=== PATIENT | male | born 1985 | race Two or more races ===

== ENCOUNTER 2021-05-14 11:39 | Inpatient (IN) | payer OTHER ==
[2021-05-14 12:32] LABS: Basophils # (A) 0.1 k/uL (0-0.2); Basophils % (A) 2 %; Eosinophils % (A) 1 %; HCT 39.6 % (39.0-53.0); Lymphocytes # (A) 1.2 k/uL (1.0-4.8); Lymphocytes % (A) 32 %; MCH 32.7 pg (25.0-35.0); MCHC 35.3 g/dL (31.0-37.0); MCV 92.8 fL (80.0-100.0); Mean Platelet Volume 6.1; Monocytes # (A) 0.3 k/uL (0-1.0); Monocytes % (A) 8 %; Neutrophils % (A) 54 %; Platelet Count 273 k/uL (150-450); RBC 4.27 m/uL (4.30-5.90); RDW 14.2 % (11.5-15.5); WBC 3.7 k/uL (3.8-10.6)
[2021-05-14 12:51] LABS: ALT 15 U/L (4-49); AST 28 U/L (17-59); African American GFR (CKD) >90 (>60 ml/min/1.73 sqM); Albumin 4.6 g/dL (3.5-5.0); Alkaline Phosphatase 73 U/L (38-126); Anion Gap 7 mmol/L; Blood Urea Nitrogen 6 mg/dL (9-20); Calcium 8.8 mg/dL (8.4-10.2); Carbon Dioxide 30 mmol/L (22-30); Chloride 86 mmol/L (98-107); Glucose 72 mg/dL (74-99); Magnesium 2.1 mg/dL (1.6-2.3); Non-African American GFR(CKD) >90 (>60 ml/min/1.73 sqM); Potassium 4.6 mmol/L (3.5-5.1); Sodium 123 mmol/L (137-145); Total Bilirubin 0.3 mg/dL (0.2-1.3); Total Protein 7.6 g/dL (6.3-8.2)
--- NOTE | 2021-05-14 13:05 | ED ---
General Adult HPI - General Source: patient Mode of arrival: ambulatory Limitations: no limitations <Eusebio Vaughn - Last Filed: 05/14/21 14:02> <uL Okeefe - Last Filed: 05/20/21 01:22> - General Chief complaint: Recheck/Abnormal Lab/Rx Stated complaint: low sodium Time Seen by Provider: 05/14/21 11:52 - History of Present Illness Initial comments: 36-year-old male presents to the emergency room for a chief complaint of low sodium. Caregiver is at bedside and reports that patient had blood work done at his primary care office yesterday. His sodium was found to be low she reports it was 120. She reports he does take Tegretol and his Tegretol levels were high. Today they were called and told to come into the ER because of this low sodium.patient has not had any symptoms. Is feeling well at this time. No complaints. Mother reports he has been acting normally. Patient has no other complaints at this time including shortness of breath, chest pain, abdominal pain, nausea or vomiting, headache, or visual changes. (Euseboi Vaughn) - Related Data Home Medications Medication Instructions Recorded Confirmed ARIPiprazole [Abilify] 30 mg PO DAILY 05/14/21 05/14/21 Benztropine Mesylate 0.5 mg PO BID 05/14/21 05/14/21 Cetirizine HCl [Zyrtec] 10 mg PO DAILY 05/14/21 05/14/21 Ergocalciferol [Vitamin D2 (1250 1,250 mcg PO QMONTHLY 05/14/21 05/14/21 Mcg = 94426 Iu)] Famotidine [Pepcid] 20 mg PO DAILY 05/14/21 05/14/21 Levothyroxine Sodium 25 mcg PO DIRECTED 05/14/21 05/14/21 Previous Rx's Medication Instructions Recorded Hydrocortisone Cream 1 applic TOPICAL TID 7 Days #1 tube 05/16/21 [Hydrocortisone 1% Cream] carBAMazepine [TEGretol] 100 mg PO DAILY@1200 #30 tab 05/16/21 carBAMazepine [TEGretol] 200 mg PO BID #60 tab 05/16/21 fluvoxaMINE MALEATE [Luvox CR] 100 mg PO BID #60 cap 05/16/21 Allergies Allergy/AdvReac Type Severity Reaction Status Date / Time No Known Allergies Allergy Verified 05/14/21 13:23 Review of Systems ROS Other: All systems not noted in ROS Statement are negative. <Eusebio Vaughn - Last Filed: 05/14/21 14:02> ROS Other: All systems not noted in ROS Statement are negative. <SaryLu Hitesh - Last Filed: 05/20/21 01:22> ROS Statement: Those systems with pertinent positive or pertinent negative responses have been documented in the HPI. Past Medical History Past Medical History: Seizure Disorder Additional Past Medical History / Comment(s): cognitive delay History of Any Multi-Drug Resistant Organisms: None Reported Past Surgical History: No Surgical Hx Reported Past Psychological History: No Psychological Hx Reported Smoking Status: Never smoker Past Alcohol Use History: None Reported Past Drug Use History: None Reported <Eusebio Vaughn - Last Filed: 05/14/21 14:02> General Exam Limitations: no limitations General appearance: alert, in no apparent distress Head exam: Present: atraumatic, normocephalic, normal inspection Eye exam: Present: normal appearance, PERRL, EOMI. Absent: scleral icterus, conjunctival injection, periorbital swelling ENT exam: Present: normal exam, mucous membranes moist Neck exam: Present: normal inspection, full ROM. Absent: tenderness, meningismus, lymphadenopathy Respiratory exam: Present: normal lung sounds bilaterally. Absent: respiratory distress, wheezes, rales, rhonchi, stridor Cardiovascular Exam: Present: regular rate, normal rhythm, normal heart sounds. Absent: systolic murmur, diastolic murmur, rubs, gallop, clicks GI/Abdominal exam: Present: soft, normal bowel sounds. Absent: distended, tenderness, guarding, rebound, rigid Neurological exam: Present: alert, oriented X3 <Eusebio Vaughn - Last Filed: 05/14/21 14:02> Course Vital Signs 05/14/21 11:43 Temperature 97.5 F L Pulse Rate 66 Respiratory 16 Rate Blood Pressure 104/65 O2 Sat by Pulse 100 Oximetry Medical Decision Making - Lab Data Result diagrams: 05/14/21 12:04 05/14/21 12:04 <Eusebio Vaughn P - Last Filed: 05/14/21 14:02> - Lab Data Result diagrams: 05/16/21 05:48 05/16/21 05:48 <Lu Okeefe - Last Filed: 05/20/21 01:22> - Medical Decision Making Vitals are stable. CBC is unremarkable. CMP does show sodium level of 123. Labs from yesterday were reviewed. Sodium was 120. Tegretol level was high at 15.3. Takes this for seizures. I discussed this case with Dr. Conklin. Given low sodium levels and elevated Tegretol level we will admit patient for gentle correction. We will consult neurology as he takes this for seizures to readjust his dose as it is likely too high given his recent elevated level. (Eusebio Vaughn) I was available for consultation in the emergency department. The history and physical exam were done by the midlevel provider. I was consulted for this patients care. I reviewed the case with the midlevel provider and based on their presentation of the patient, I agree with the assessment, medical decision making and plan of care as documented. Chart was dictated using [employer] dictation software. Attempts were made to correct any dictation errors however some typographical errors may persist. (Lu Okeefe) - Lab Data Lab Results 05/14/21 05/14/21 Range/Units 12:04 12:04 WBC 3.7 L (3.8-10.6) k/uL RBC 4.27 L (4.30-5.90) m/uL Hgb 14.0 (13.0-17.5) gm/dL Hct 39.6 (39.0-53.0) % MCV 92.8 (80.0-100.0) fL MCH 32.7 (25.0-35.0) pg MCHC 35.3 (31.0-37.0) g/dL RDW 14.2 (11.5-15.5) % Plt Count 273 (150-450) k/uL MPV 6.1 Neutrophils % 54 % Lymphocytes % 32 % Monocytes % 8 % Eosinophils % 1 % Basophils % 2 % Neutrophils # 2.0 (1.3-7.7) k/uL Lymphocytes # 1.2 (1.0-4.8) k/uL Monocytes # 0.3 (0-1.0) k/uL Eosinophils # 0.0 (0-0.7) k/uL Basophils # 0.1 (0-0.2) k/uL Sodium 123 L (137-145) mmol/L Potassium 4.6 (3.5-5.1) mmol/L Chloride 86 L (98-107) mmol/L Carbon Dioxide 30 (22-30) mmol/L Anion Gap 7 mmol/L BUN 6 L (9-20) mg/dL Creatinine 0.68 (0.66-1.25) mg/dL Est GFR (CKD-EPI)AfAm >90 (>60 ml/min/1.73 sqM) Est GFR (CKD-EPI)NonAf >90 (>60 ml/min/1.73 sqM) Glucose 72 L (74-99) mg/dL Calcium 8.8 (8.4-10.2) mg/dL Magnesium 2.1 (1.6-2.3) mg/dL Total Bilirubin 0.3 (0.2-1.3) mg/dL AST 28 (17-59) U/L ALT 15 (4-49) U/L Alkaline Phosphatase 73 (38-126) U/L Total Protein 7.6 (6.3-8.2) g/dL Albumin 4.6 (3.5-5.0) g/dL Disposition Is patient prescribed a controlled substance at d/c from ED?: No Time of Disposition: 13:59 <Eusebio Vaughn P - Last Filed: 05/14/21 14:02> <Lu Okeefe - Last Filed: 05/20/21 01:22> Clinical Impression: Elevated Tegretol level, Hyponatremia Disposition: ADMITTED IP TO THIS HOSP
[2021-05-14] MEDS ORDERED: NALOXONE 0.4 MG/ML 1 ML VIAL IV PRN (13:59)
[2021-05-14] MEDS: SODIUM CHLORIDE 0.9% 1,000 ML IV SCH (15:16)
--- NOTE | 2021-05-14 18:50 | P.CNNES ---
History of Present Illness Consult date: 05/14/21 Requesting physician: Eusebio Vaughn Reason for Consult: Elevated Tegretol level History of Present Illness: Patient is a 36-year-old male with history of seizure disorder, cognitive delay, presents to the ER with chief complaints of low sodium level. Patient had blood workup done at his primary care physician office yesterday. His sodium was found to be low 120. Tegretol level was high 15.3. Today they were called and told to come to ER because of abnormal labs. Patient is feeling well at this time. No complaints. Patient's caregiver from halfway was present, who provided the history. Patient has history of autistic spectrum disorder with intellectual disability. He has limited speech, but does make his needs known to the staff. Patient walks independently, and his grandfather and grandmother are the family contact but he lives in a halfway. Also has history of seizures. The caregiver who was present, does not know details about his seizure disorder. She states the patient has been in their halfway for last 2-3 years and he had only one seizure about 6 months ago. With that seizure, patient apparently had a fall. Caregivers heard him fall hitting the floor. He was awake but not responding verbally or follow directions for couple minutes. There was no tongue bite although he did lose control of urine. There was no convulsive activity noted by the staff. Patient was taken to the hospital, where he was found to have low sodium. Medications were not changed, and was continue to monitor. Patient follows up with Dr. Rosado. Patient currently is on Tegretol 200 mg 3 times a day. Patient's blood test from today shows WBC 3.7, hemoglobin 14.0, platelets 273. Sodium 123, potassium 4.6, normal renal functions, normal hepatic panel. On review of previous labs, he has been running sodium between 123-125. This time was the lowest 120 on 05/13/2021. Patient also suffered from a rash over his bilateral medial forearm about a month ago. It went away after taking some medications, but has reappeared in the left medial forearm and right dorsum of the hand in the radial region. Review of Systems ROS unobtainable: due to mental status Past Medical History Past Medical History: Seizure Disorder Additional Past Medical History / Comment(s): cognitive delay History of Any Multi-Drug Resistant Organisms: None Reported Past Surgical History: No Surgical Hx Reported Past Psychological History: No Psychological Hx Reported Smoking Status: Never smoker Past Alcohol Use History: None Reported Past Drug Use History: None Reported Medications and Allergies Home Medications Medication Instructions Recorded Confirmed Type ARIPiprazole [Abilify] 30 mg PO DAILY 05/14/21 05/14/21 History Benztropine Mesylate 0.5 mg PO BID 05/14/21 05/14/21 History Cetirizine HCl [Zyrtec] 10 mg PO DAILY 05/14/21 05/14/21 History Ergocalciferol [Vitamin D2 (1250 1,250 mcg PO QMONTHLY 05/14/21 05/14/21 History Mcg = 96627 Iu)] Famotidine [Pepcid] 20 mg PO DAILY 05/14/21 05/14/21 History Levothyroxine Sodium 25 mcg PO DIRECTED 05/14/21 05/14/21 History carBAMazepine CHEW [TEGretol CHEW] 200 mg PO Q8H 05/14/21 05/14/21 History fluvoxaMINE MALEATE [Luvox CR] 100 mg PO TID 05/14/21 05/14/21 History Allergies Allergy/AdvReac Type Severity Reaction Status Date / Time No Known Allergies Allergy Verified 05/14/21 13:23 Physical Examination - Vital Signs Vital Signs: Vital Signs Temp Pulse Pulse Resp BP BP Pulse Ox 05/14/21 16:21 97.7 F 59 L 16 116/72 99 05/14/21 16:01 98.2 F 66 18 119/73 100 05/14/21 11:43 97.5 F L 66 16 104/65 100 Intake and Output 05/14/21 05/14/21 05/14/21 06:59 14:59 22:59 Other: Weight 81.647 kg Patient is a young male, in no acute distress. Patient is alert awake. Patient name and his date of . He could not tell the city, state he lives in or the month or year. He knows name of his grandpa Tello. He often answers completely incorrect like when I asked what state, states Monday. Speech is clear with no dysarthria, language functions are limited. Attention, concentration and fund of knowledge is limited. On cranial examination, pupils are round and reacting to light, visual avalos could not be tested reliably, extraocular muscles are intact with no nystagmus. Face is symmetric, tongue protrudes to the midline. Palatal elevation and sensation normal, hearing appears normal and shoulder shrug normal, facial sensation normal. On muscle strength testing, there is no pronator drift and the strength appears normal in arms and legs. Patient would not cooperate, would let go of the muscles when being tested. Deep tendon reflexes are 1+ to 2 and plantars downgoing. Sensory to touch is equal with no neglect. Cerebellar function showed no ataxia for [id number] testing. Tone and bulk of muscles normal. Gait normal. On general examination, there is no carotid bruit or murmur, S1-S2 audible. Abdomen is soft nontender. Chest is clear. Peripheral pulses are present. No edema. Results - Laboratory Findings CBC and BMP: 05/14/21 12:04 05/14/21 12:04 Abnormal Lab Findings: Abnormal Labs 05/14/21 05/14/21 12:04 12:04 WBC 3.7 L RBC 4.27 L Sodium 123 L Chloride 86 L BUN 6 L Glucose 72 L Assessment and Plan Assessment: * Seizure disorder, stable on Tegretol. * Tegretol toxicity. Patient's Tegretol level of 15.3 was peak level. * Autistic spectrum disorder * Hyponatremia, likely due to Tegretol use. * Rash on the skin left medial forearm and right dorsal hand, unclear cause. Plan: * Patient's Tegretol and has been held today. * We will recheck Tegretol level in the morning. If the level comes back therapeutic (<12), will place patient on Tegretol 200 mg twice a day and 100 mg at noon (500 mg total daily dose instead of 600 mg). * Repeat sodium level in the morning. * I would suggest patient switch to another antiepileptic medication. Would defer to her neurologist Dr. Rosado for switching to another AED. * If the levels are therapeutic tomorrow, then clear for discharge, to follow-up with his neurologist in 1-2 weeks.
[2021-05-14 19:21] LABS: African American GFR (CKD) >90 (>60 ml/min/1.73 sqM); Anion Gap 8 mmol/L; Blood Urea Nitrogen 8 mg/dL (9-20); Calcium 8.8 mg/dL (8.4-10.2); Carbon Dioxide 28 mmol/L (22-30); Chloride 90 mmol/L (98-107); Glucose 116 mg/dL (74-99); Non-African American GFR(CKD) >90 (>60 ml/min/1.73 sqM); Potassium 4.1 mmol/L (3.5-5.1); Sodium 126 mmol/L (137-145)
[2021-05-14] MEDS ORDERED: ACETAMINOPHEN TAB 325 MG TAB PO PRN (19:48)
[2021-05-14] MEDS ORDERED: LORazepam 2 MG/ML INJ IV PRN (19:48)
--- NOTE | 2021-05-14 19:52 | P.HPIM ---
History of Present Illness H&P Date: 05/14/21 Chief Complaint: rash, low sodium, elevated tegratol Patient is a 36-year-old male who is a resident of nursing home who presented to the ER at the direction of his primary care physician secondary to elevated Tegretol level, new onset rash, and hyponatremia. He has a history of a seizure disorder and cognitive delay. He was found to have a sodium level of 120 and a tegratol level of 15.2 as an outpatietn on 05/13/21. In the ED his tegratol was held and he was started on IV fluids. Patient seen and examined at bedside. Talia spoke with care taked who was here and stated that she did not know much about his past. He has seizure disorder adn congnitive delay. He was raised by his grandparents. They took him to the doctor for a newly dicovered rash when they were worreid about his tegratol levels and sodium. On Review of records his sodium has been low since june 2020. He tells me that he developed the rash a day ago and that it itches but is not painful. He denies any headache, nausea, or vomiting. He answers simple yes or no questions. He indicates that he likes pizza, cheeseburger from placement, and chocolate milk. All information was obtained from thorough review of records available. 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 Attempted to call grandfather 2 without response. Pertinent positives and negatives as discussed in HPI, a complete review of systems was performed and all other systems are negative. General: non toxic, no distress, appears at stated age Derm: Left upper extremity with erythema with raised border on left forearm without scale, desquamation, no drainage, or warmth. Large 5 cm lesion on right thenar eminence with some plaquing, no pinpoint lesions of blood, slightly raised and not warm. Head: atraumatic, normocephalic, symmetric Eyes: EOMI, no lid lag, anicteric sclera, pupils equal round reactive to light ENT: Nose and ears atraumatic, no thrush, no pharyngeal erythema Neck: No thyromegaly, no cervical lymphadenopathy, trachea midline, supple Mouth: no lip lesion, mucus membranes moist Cardiovascular: S1S2 reg, no murmur, positive posterior tibial pulse bilateral, no edema, capillary refill less than 2 seconds Lungs: clear to ascultation bilateral, no ronchi, no rales, no wheeze, no accessory muscle use Abdominal: soft, nontender to palpation, no guarding, no appreciable organomegaly, normal bowel sounds Ext: no gross muscle atrophy, muscle strength muscle strength equal in all 4 extremities, no contractures Neuro: CN II-XI grossly intact, light touch intact all 4 extremities, finger to nose within normal limits, Psych: Alert, oriented to place, slowed responses Hyponatremia, appears chronic -May be secondary to SIADH due to Abilify, Tegretol, and fluphenazine -Hold medications listed above -Follow sodium levels -Consult nephrology -Decreased normal saline as he has had an increase in his serum sodium level -Check urine osmole, urine sodium, serum osmole was checked as an outpatient was 250. Toxic Tegretol level with associated urticarial rash -Hold Tegretol -Neurology recommendations -Steroid cream -Continue to monitor skin Leukopenia -Concerns for possible reaction to Tegretol -Monitor CBC I attempted to call Grandfather twice for information and the number does not ring as disconnects. The patient is admitted with an anticipated greater than 2 midnight stay for evaluation of elevated tegratol level Surrogate decision-maker: Legal guardian CODE STATUS:full by default DVT prophylaxis: SCDs Discussed with: ED physician, nursing Anticipated discharge date: undetermined Anticipated discharge place: return to nursing home A total of 75 minutes was spent on the care of this complex patient more than 50% of the time was spent in counseling and care coordination. Review of Systems ROS unobtainable: due to mental status Past Medical History Past Medical History: Seizure Disorder Additional Past Medical History / Comment(s): cognitive delay History of Any Multi-Drug Resistant Organisms: None Reported Past Surgical History: No Surgical Hx Reported Past Psychological History: No Psychological Hx Reported Smoking Status: Never smoker Past Alcohol Use History: None Reported Past Drug Use History: None Reported Medications and Allergies Home Medications Medication Instructions Recorded Confirmed Type ARIPiprazole [Abilify] 30 mg PO DAILY 05/14/21 05/14/21 History Benztropine Mesylate 0.5 mg PO BID 05/14/21 05/14/21 History Cetirizine HCl [Zyrtec] 10 mg PO DAILY 05/14/21 05/14/21 History Ergocalciferol [Vitamin D2 (1250 1,250 mcg PO QMONTHLY 05/14/21 05/14/21 History Mcg = 34650 Iu)] Famotidine [Pepcid] 20 mg PO DAILY 05/14/21 05/14/21 History Levothyroxine Sodium 25 mcg PO DIRECTED 05/14/21 05/14/21 History carBAMazepine CHEW [TEGretol CHEW] 200 mg PO Q8H 05/14/21 05/14/21 History fluvoxaMINE MALEATE [Luvox CR] 100 mg PO TID 05/14/21 05/14/21 History Allergies Allergy/AdvReac Type Severity Reaction Status Date / Time No Known Allergies Allergy Verified 05/14/21 13:23 Physical Exam Osteopathic Statement: *. No significant issues noted on an osteopathic stru ctural exam other than those noted in the History and Physical/Consult. Vitals: Vital Signs Temp Pulse Pulse Resp BP BP Pulse Ox 05/14/21 16:21 97.7 F 59 L 16 116/72 99 05/14/21 16:01 98.2 F 66 18 119/73 100 05/14/21 11:43 97.5 F L 66 16 104/65 100 Intake and Output 05/14/21 05/14/21 05/14/21 06:59 14:59 22:59 Intake Total 360 Balance 360 Intake: Oral 360 Other: # Voids 1 Weight 81.647 kg 81.647 kg Results CBC & Chem 7: 05/14/21 12:04 05/14/21 19:01 Labs: Abnormal Lab Results - Last 24 Hours (Table) 05/14/21 05/14/21 05/14/21 Range/Units 12:04 12:04 19:01 WBC 3.7 L (3.8-10.6) k/uL RBC 4.27 L (4.30-5.90) m/uL Sodium 123 L 126 L (137-145) mmol/L Chloride 86 L 90 L (98-107) mmol/L BUN 6 L 8 L (9-20) mg/dL Creatinine 0.63 L (0.66-1.25) mg/dL Glucose 72 L 116 H (74-99) mg/dL Thrombosis Risk Factor Assmnt - Choose All That Apply Each Factor Represents 1 point: Age 41-60 years Other Risk Factors: No Other congenital or acquired thrombophilia - If yes, enter type in comment: No Thrombosis Risk Factor Assessment Total Risk Factor Score: 1 Thrombosis Risk Factor Assessment Level: Low Risk
[2021-05-15 00:12] LABS: Appearance,Urine Clear (Clear); Bilirubin,Urine Negative (Negative); Blood,Urine Negative (Negative); Color,Urine Light Yellow; Glucose,Urine (UA) Negative (Negative); Ketones,Urine Negative (Negative); Leukocyte Esterase,Urine Negative (Negative); Nitrite,Urine Negative (Negative); Protein,Urine Negative (Negative); Specific Gravity,Urine 1.006 (1.001-1.035); Urobilinogen,Urine <2.0 mg/dL (<2.0)
[2021-05-15 05:10] LABS: Glucose,Whole Blood 78 mg/dL (75-99)
[2021-05-15] MEDS: LEVOTHYROXINE 25 MCG TAB PO SCH (06:25)
[2021-05-15] MEDS: SODIUM CHLORIDE 0.9% 1,000 ML IV SCH (06:26)
[2021-05-15 07:59] LABS: HCT 37.6 % (39.0-53.0); HGB 13.5 gm/dL (13.0-17.5); MCH 33.5 pg (25.0-35.0); MCHC 35.9 g/dL (31.0-37.0); MCV 93.4 fL (80.0-100.0); Mean Platelet Volume 6.1; Platelet Count 251 k/uL (150-450); RBC 4.03 m/uL (4.30-5.90); RDW 13.4 % (11.5-15.5); WBC 4.2 k/uL (3.8-10.6)
[2021-05-15 08:07] LABS: African American GFR (CKD) >90 (>60 ml/min/1.73 sqM); Anion Gap 8 mmol/L; Blood Urea Nitrogen 10 mg/dL (9-20); Calcium 8.9 mg/dL (8.4-10.2); Carbamazepine (Tegretol) 7.9 ug/mL; Carbon Dioxide 27 mmol/L (22-30); Chloride 98 mmol/L (98-107); Glucose 87 mg/dL (74-99); Magnesium 2.3 mg/dL (1.6-2.3); Non-African American GFR(CKD) >90 (>60 ml/min/1.73 sqM); Potassium 4.2 mmol/L (3.5-5.1); Sodium 133 mmol/L (137-145)
[2021-05-15] MEDS: ARIPiprazole 15 MG TAB PO SCH (10:04)
[2021-05-15] MEDS: FAMOTIDINE 20 MG TAB PO SCH (10:05)
[2021-05-15] MEDS: LORATADINE 10 MG TAB PO SCH (10:05)
--- NOTE | 2021-05-15 10:19 | CONS ---
CONSULTATION REASON FOR CONSULT: Hyponatremia. HISTORY OF PRESENT ILLNESS: Patient is a 36-year-old male with history of developmental delay who lives in a prison and who has a history of seizure, who is maintained on Tegretol for it. Patient was admitted to the hospital with a rash that was noted as well as hyponatremia documented as outpatient. Recently patient had an elevated Tegretol level as outpatient on May 13 and his sodium was 120. His Tegretol has been on hold. Patient was placed on saline at 50 mL an hour. His sodium level improved to about 126 yesterday and this morning it is 133. Mentation has been at baseline. There is no numbness or tingling reported. Urine osmolality was 238 on initial admission. Blood pressure has been about 116-119 mmHg. PAST MEDICAL HISTORY: Developmental delay, seizure disorder. SOCIAL HISTORY: Negative for smoking, drug abuse or alcohol abuse. Patient lives in a prison. MEDICATIONS: Prior to admission included Abilify, Zyrtec, Pepcid, Synthroid, Tegretol, Luvox. ALLERGIES: None. REVIEW OF SYSTEMS: As per HPI. Other systems negative. EXAMINATION: The patient is comfortable, awake. He is not in any acute distress. He follows commands. He is slow to respond. Blood pressure is 119/58, heart rate 83 per minute. He is afebrile. O2 sats 99% on room air. Examination of the heart S1, S2. Examination of the lungs, bilateral breath sounds are heard. Abdomen is soft, nontender. Examination of lower extremities shows no evidence of edema. CLINICAL SAFETY SPECIALIST Exam shows patient moving all 4 extremities. LAB: Show sodium 133, potassium 4.2, BUN 10, serum creatinine 0.78, hemoglobin 13.5. Urine osmolality 238. ASSESSMENT: 1. Hyponatremia appears to be hypovolemic and significantly improved with saline administration. I will discontinue the saline as sodium is up to 133 today. No need for fluid restriction at this point. 2. Tegretol toxicity, medication currently on hold. Level was down to 7.9 this morning. 3. History of seizure disorder maintained on Tegretol as outpatient. 4. History of cognitive delay since fairly stable. PLAN: DC normal saline. Avoid fluid restriction for now. Continue to monitor labs as outpatient when discharged. Repeat sodium this evening. Thank you for this consultation. We will continue to follow the patient during his hospitalization. MMODL / IJN: [id number] / VILMA
[2021-05-15 12:21] LABS: African American GFR (CKD) >90 (>60 ml/min/1.73 sqM); Anion Gap 7 mmol/L; Blood Urea Nitrogen 9 mg/dL (9-20); Calcium 8.9 mg/dL (8.4-10.2); Carbon Dioxide 27 mmol/L (22-30); Chloride 97 mmol/L (98-107); Glucose 101 mg/dL (74-99); Non-African American GFR(CKD) >90 (>60 ml/min/1.73 sqM); Potassium 4.5 mmol/L (3.5-5.1); Sodium 131 mmol/L (137-145)
[2021-05-15] MEDS: carBAMazepine 200 MG TAB PO SCH ×2 (13:09→19:53)
[2021-05-15] MEDS: HYDROCORTISONE 1% CREAM 30 GM TUBE TOPICAL SCH ×3 (13:10→19:53)
--- NOTE | 2021-05-15 15:53 | P.PN ---
Subjective Progress Note Date: 05/15/21 Principal diagnosis: elevated tegretol level Patient is a 36-year-old male who is a resident of [facility] who presented to the ER at the direction of his primary care physician secondary to elevated Tegretol level, new onset rash, and hyponatremia. He has a history of a seizure disorder and cognitive delay. He was found to have a sodium level of 120 and a tegratol level of 15.2 as an outpatietn on 05/13/21. In the ED his tegratol was held and he was started on IV fluids. His sodium corrected rapidly and his IV fluids were decreased. Nephrology was consulted. Urine sodium was less than 40. So the patient likely had dehydration. He was resumed on his Abilify. His Tegretol level was held and neurology was consulted. His Tegretol level on 05/15 was 7.9. Patient seen and examined at bedside. Per nursing his more agitated this morning. He currently says "yes" to all questions. General: non toxic, no distress, appears at stated age Derm: warm, dry Head: atraumatic, normocephalic, symmetric Eyes: EOMI, no lid lag, anicteric sclera Mouth: no lip lesion, mucus membranes moist Cardiovascular: S1S2 reg, no murmur, positive posterior tibial pulse bilateral, Lungs: CTA bilateral, no rhonchi, no rales , no accessory muscle use Abdominal: soft, nontender to palpation, no guarding, no appreciable organomegaly Ext: no gross muscle atrophy, no edema, no contractures Neuro: CN II-XI grossly intact, no focal neuro deficits Psych: Awake, alert to self and not being in his home environment Hyponatremia, chronic - likely due to hypovolemia with rapid correction - Nephro recs appreciated -Off fluids -Continue to hold Tegretol -Repeat sodium level this afternoon and in a.m. - if stable in AM likely home Toxic Tegretol level with associated urticarial rash -Hold Tegretol -Neurology recommendations -Steroid cream -Continue to monitor skin Leukopenia -Concerns for possible reaction to Tegretol -Monitor CBC DVT prophylaxis: SCDs Discussed with: nursing Anticipated discharge date: undetermined Anticipated discharge place: return to [facility] A total of 25 minutes was spent on the care of this complex patient more than 50% of the time was spent in counseling and care coordination. Objective - Vital Signs Vital signs: Vital Signs Temp 98.0 F 05/15/21 09:14 Pulse 82 05/15/21 13:08 Resp 16 05/15/21 13:08 BP 125/63 05/15/21 13:08 Pulse Ox 98 05/15/21 13:08 Intake & Output 05/14/21 05/15/21 05/15/21 18:59 06:59 18:59 Intake Total 360 7357 118 Balance 360 1677 118 Weight 81.647 kg 82.3 kg Intake: Oral 360 1201 118 Other: Voiding Method Toilet Toilet # Voids 1 1 - Labs CBC & Chem 7: 05/15/21 07:24 05/15/21 11:56 Labs: Abnormal Lab Results - Last 24 Hours (Table) 05/14/21 05/15/21 05/15/21 Range/Units 19:01 00:12 07:24 RBC (4.30-5.90) m/uL Hct (39.0-53.0) % Sodium 126 L 126 L 133 L (137-145) mmol/L Chloride 90 L (98-107) mmol/L BUN 8 L (9-20) mg/dL Creatinine 0.63 L (0.66-1.25) mg/dL Glucose 116 H (74-99) mg/dL 05/15/21 05/15/21 Range/Units 07:24 11:56 RBC 4.03 L (4.30-5.90) m/uL Hct 37.6 L (39.0-53.0) % Sodium 131 L (137-145) mmol/L Chloride 97 L (98-107) mmol/L BUN (9-20) mg/dL Creatinine (0.66-1.25) mg/dL Glucose 101 H (74-99) mg/dL
[2021-05-16 01:59] VITALS: BP 115/75; RESP 16
[2021-05-16 04:37] VITALS: PULSE 63; TEMP 97.8
[2021-05-16] MEDS: LEVOTHYROXINE 25 MCG TAB PO SCH (06:03)
[2021-05-16 06:19] LABS: HCT 38.3 % (39.0-53.0); HGB 13.6 gm/dL (13.0-17.5); MCH 33.5 pg (25.0-35.0); MCHC 35.5 g/dL (31.0-37.0); MCV 94.3 fL (80.0-100.0); Mean Platelet Volume 6.5; Platelet Count 237 k/uL (150-450); RBC 4.06 m/uL (4.30-5.90); RDW 13.6 % (11.5-15.5); WBC 5.7 k/uL (3.8-10.6)
[2021-05-16 06:33] LABS: African American GFR (CKD) >90 (>60 ml/min/1.73 sqM); Anion Gap 3 mmol/L; Blood Urea Nitrogen 12 mg/dL (9-20); Carbon Dioxide 31 mmol/L (22-30); Chloride 98 mmol/L (98-107); Glucose 108 mg/dL (74-99); Non-African American GFR(CKD) >90 (>60 ml/min/1.73 sqM); Potassium 4.7 mmol/L (3.5-5.1); Sodium 132 mmol/L (137-145)
--- NOTE | 2021-05-16 09:07 | P.DS ---
Providers Date of admission: 05/14/21 14:21 Expected date of discharge: 05/16/21 Attending physician: Natalya Vasquez DO Consults: 05/14/21 14:00 Consult Physician Routine Consulting Provider: Johana Gibson Consult Reason/Comments: elevated Tegretol levels Do you want consulting provider notified?: Yes 05/14/21 19:49 Consult Physician Routine Consulting Provider: Cristina Shepherd Consult Reason/Comments: hyponatremia Do you want consulting provider notified?: Yes Primary care physician: Rena Mckeon Hospital Course: Discharge Diagnosis: Hyponatremia, acute on chronic Tegratol toxicity Contact dermatitis Leukopenia Cognitive delay Hypothyroidism Hospital Course: Patient is a 36-year-old male with hypothyroidism, seizure disorder, and cognitie delay. who is a resident of [facility] who presented to the ER at the direction of his primary care physician secondary to elevated Tegretol level, new onset rash, and hyponatremia. He has a history of a seizure disorder and cognitive delay. He was found to have a sodium level of 120 and a tegratol level of 15.2 as an outpatietn on 05/13/21. In the ED his tegratol was held and he was started on IV fluids. His sodium corrected rapidly and his IV fluids were decreased. Nephrology was consulted. Urine sodium was less than 40. So the patient likely had dehydration. He was resumed on his Abilify. His Tegretol level was held and neurology was consulted. His Tegretol level on 05/15 was 7.9. He was seen by neurology who recommended decreasing his Tegretol from 600 mg daily, 500 mg daily. His Tegretol level improved. His sodium normalized with fluid resuscitation. He was determined stable for discharge home. Follow-up: OK in 3 days, Dr. Mckeon next week, Dr. Yepez in 1-2 weeks, encouraged oral fluid intake Patient seen and examined at bedside. He deneis pain, wants to go home. Vital signs reviewed and stable. General: non toxic, no distress, appears at stated age Derm: warm, dry Head: atraumatic, normocephalic, symmetric Eyes: EOMI, no lid lag, anicteric sclera Mouth: no lip lesion, mucus membranes moist Cardiovascular: S1S2 reg, no murmur, positive posterior tibial pulse bilateral, Lungs: CTA bilateral, no rhonchi, no rales , no accessory muscle use Abdominal: soft, nontender to palpation, no guarding, no appreciable organomegaly Ext: no gross muscle atrophy, no edema, no contractures Neuro: CN II-XI grossly intact, no focal neuro deficits Psych: alert and wake A total of 32 minutes of time were spent preparing this complex discharge summary . Plan - Discharge Summary Discharge Rx Participant: No New Discharge Prescriptions: New Hydrocortisone Cream [Hydrocortisone 1% Cream] 1 applic TOPICAL TID 7 Days #1 tube carBAMazepine [TEGretol] 100 mg PO DAILY@1200 tab carBAMazepine [TEGretol] 200 mg PO BID tab Continue Famotidine [Pepcid] 20 mg PO DAILY Cetirizine HCl [Zyrtec] 10 mg PO DAILY Levothyroxine Sodium 25 mcg PO DIRECTED Ergocalciferol [Vitamin D2 (1250 Mcg = 15290 Iu)] 1,250 mcg PO QMONTHLY Benztropine Mesylate 0.5 mg PO BID ARIPiprazole [Abilify] 30 mg PO DAILY Changed fluvoxaMINE MALEATE [Luvox CR] 100 mg PO BID #0 Discontinued carBAMazepine CHEW [TEGretol CHEW] 200 mg PO Q8H Discharge Medication List ARIPiprazole [Abilify] 30 mg PO DAILY 05/14/21 [History] Benztropine Mesylate 0.5 mg PO BID 05/14/21 [History] Cetirizine HCl [Zyrtec] 10 mg PO DAILY 05/14/21 [History] Ergocalciferol [Vitamin D2 (1250 Mcg = 03351 Iu)] 1,250 mcg PO QMONTHLY 05/14/21 [History] Famotidine [Pepcid] 20 mg PO DAILY 05/14/21 [History] Levothyroxine Sodium 25 mcg PO DIRECTED 05/14/21 [History] Hydrocortisone Cream [Hydrocortisone 1% Cream] 1 applic TOPICAL TID 7 Days #1 tube 05/16/21 [Rx] carBAMazepine [TEGretol] 100 mg PO DAILY@1200 tab 05/16/21 [Rx] carBAMazepine [TEGretol] 200 mg PO BID tab 05/16/21 [Rx] fluvoxaMINE MALEATE [Luvox CR] 100 mg PO BID #0 05/16/21 [Rx] Follow up Appointment(s)/Referral(s): Rena Mckeon MD [Primary Care Provider] - 1-2 days Sharla Rosado MD [REFERRING] - 1 Week Ambulatory/Diagnostic Orders: Basic Metabolic Panel [LAB.AMB] Time Frame: 3 Days, Location: None Selected Miscellaneous Lab Order [LAB.AMB] Time Frame: 3 Days, Location: None Selected Activity/Diet/Wound Care/Special Instructions: Activity: as tolerated Diet: regular Special Instructions: lab work in 3-4 days Discharge Disposition: HOME SELF-CARE
[2021-05-16] MEDS: FAMOTIDINE 20 MG TAB PO SCH (09:30)
[2021-05-16] MEDS: carBAMazepine 200 MG TAB PO SCH (09:30)
[2021-05-16] MEDS: LORATADINE 10 MG TAB PO SCH (09:30)
[2021-05-16] MEDS: ARIPiprazole 15 MG TAB PO SCH (09:30)
[2021-05-16] MEDS: HYDROCORTISONE 1% CREAM 30 GM TUBE TOPICAL SCH (09:31)
[2021-05-16] MEDS ORDERED: carBAMazepine 200 MG TAB PO SCH (12:00)
--- NOTE | 2021-05-16 13:42 | PN ---
PROGRESS NOTE Patient is seen for followup for hyponatremia. He is currently awake, comfortable, not in any acute distress. Sodium level has improved to 132 today. PHYSICAL EXAMINATION: Patient is comfortable. Blood pressure is 115/75, heart rate 63 per minute. He is afebrile. Examination shows patient is euvolemic. He has developmental delay. LABS: Show sodium of 132, potassium 4.7, creatinine 0.8. ASSESSMENT: 1. Hypovolemic hyponatremia, improved with normal saline. Currently off IV fluids, tolerating oral intake well. 2. Tegretol toxicity prior to admission, level is down to 7.9. 3. History of seizure disorder. 4. History of cognitive delay. PLAN: Okay for discharge from nephrology standpoint. Monitor sodium levels as outpatient. MMODL / IJN: [id number] /
--- NOTE | 2021-05-16 16:39 | P.PN ---
Subjective Progress Note Date: 05/15/21 Patient was seen via telemedicine. Patient is sitting in the bed in no acute distress. Offers no complaints. No seizures reported. Objective - Vital Signs Vital signs: Vital Signs Temp 97.8 F 05/16/21 04:34 Pulse 63 05/16/21 04:34 Resp 16 05/16/21 04:34 BP 115/75 05/16/21 04:34 Pulse Ox 98 05/16/21 04:34 Intake & Output 05/15/21 05/16/21 05/16/21 18:59 06:59 18:59 Intake Total 472 960 Balance 472 960 Weight 84 kg Intake: Oral 472 960 Other: Voiding Method Toilet Toilet # Voids 2 1 - Exam Patient is alert and awake. States he feels "okay". Patient's face is symmetric. Arms and legs strength appears symmetric. - Labs CBC & Chem 7: 05/16/21 05:48 05/16/21 05:48 Labs: Abnormal Lab Results - Last 24 Hours (Table) 05/15/21 05/16/21 05/16/21 Range/Units 11:56 05:48 05:48 RBC 4.06 L (4.30-5.90) m/uL Hct 38.3 L (39.0-53.0) % Sodium 131 L 132 L (137-145) mmol/L Chloride 97 L (98-107) mmol/L Carbon Dioxide 31 H (22-30) mmol/L Glucose 101 H 108 H (74-99) mg/dL Assessment and Plan Assessment: * Seizure disorder, stable on Tegretol. * Tegretol toxicity. Patient's Tegretol level of 15.3 was peak level. * Autistic spectrum disorder * Hyponatremia, likely due to Tegretol use. * Rash on the skin left medial forearm and right dorsal hand, unclear cause. Plan: * Patient's Tegretol level today is 7.9. * Sodium 131, much improved. * We will resume Tegretol 200 mg twice a day and 100 mg at noon (500 mg total daily dose instead of 600 mg). * I would suggest patient switch to another antiepileptic medication, due to chronic hyponatremia. Would defer to her neurologist Dr. Rosado for switching to another AED. * Neurologically clear for discharge. Discussed with the nurse.
== END 2021-05-16 11:00 | disposition home or self-care (01) | DRG 641 ==
LOC: EEVIPCON 11:39 → EC 11:39 → 3SCARD 14:21 → 5NMEDONC 05-16 01:53
PROVIDERS: ADMIT Internal Medicine; ATTEND Internal Medicine
DX: E87.1 Hypo-osmolality and hyponatremia (principal); F84.0 Autistic disorder; E86.0 Dehydration; T42.1X5A Adverse effect of iminostilbenes, initial encounter; Y92.099 Unspecified place in other non-institutional residence as the place of occurrence of the external cause; D72.819 Decreased white blood cell count, unspecified; E03.9 Hypothyroidism, unspecified; E86.1 Hypovolemia; F79 Unspecified intellectual disabilities; G40.909 Epilepsy, unspecified, not intractable, without status epilepticus; L25.9 Unspecified contact dermatitis, unspecified cause; Z91.81 History of falling; Z79.899 Other long term (current) drug therapy; Z79.890 Hormone replacement therapy
CPT/HCPCS: 36415; 80048; 80053; 80156; 81003; 83735; 83935; 84295; 84300; 85025; 85027; 99285

== ENCOUNTER → 2021-07-13 | Outpatient (CLI) | payer OTHER ==
--- NOTE | 2021-07-13 13:08 | US ---
EXAMINATION TYPE: US kidneys/renal and bladder DATE OF EXAM: 07/13/2021 COMPARISON: NONE CLINICAL HISTORY: 36-year-old male R79.9 ABN LABS. Low sodium was noted in patient's labwork per skin care specialist. EXAM MEASUREMENTS: Right Kidney: 11.3 x 6.2 x 4.5 cm Left Kidney: 10.8 x 5.3 x 5.1 cm Right Kidney: No hydronephrosis or masses seen Left Kidney: No hydronephrosis or masses seen Bladder: Mild circumferential bladder wall thickening after voiding up to 8 mm. Bilateral Jets seen: yes Post Void Residual Volume: 14.6 mL Normal Post Void Residual: yes IMPRESSION: 1. No hydronephrosis. 2. Mild circumferential bladder wall thickening. Correlate to exclude cystitis. 3. Increased postvoid bladder volume of 15 mL falls within acceptable limits.
== END | disposition home or self-care (01) ==
LOC: RADUSWWP 07:54
PROVIDERS: ATTEND Family Medicine
DX: N32.89 Other specified disorders of bladder (principal)
CPT/HCPCS: 76770

== ENCOUNTER → 2024-08-12 | Outpatient (CLI) | payer OTHER ==
[2024-08-12 14:59] LABS: Basophils # (A) 0.07 X 10*3/uL (0.00-0.10); Basophils % (A) 1.4 %; HCT 40.7 % (39.6-50.0); HGB 13.5 g/dL (13.0-17.0); Lymphocytes # (A) 1.75 X 10*3/uL (0.90-5.00); Lymphocytes % (A) 35.5 %; MCH 30.3 pg (27.0-32.0); MCHC 33.2 g/dL (32.0-37.0); MCV 91.5 FL (80.0-97.0); Mean Platelet Volume 8.1 FL (9.5-12.2); Monocytes # (A) 0.42 X 10*3/uL (0.20-1.00); Monocytes % (A) 8.5 %; NRBC Per 100 WBC 0 X 10*3/uL (0.00-0.01); Neutrophils # (A) 2.57 X 10*3/uL (1.80-7.70); Neutrophils % (A) 52.2 %; Platelet Count 261 X 10*3/uL (140-440); RBC 4.45 X 10*6/uL (4.40-5.60); WBC 4.93 X 10*3/uL (4.50-10.00)
[2024-08-12 15:58] LABS: Chol/HDL Ratio 2.86 Ratio; Glucose 98 mg/dL (70-110); LDL Cholesterol,Calculated 105.6 mg/dL (0.0-131.0); T4, Free (Free Thyroxine) 1.03 ng/dL (0.80-1.80); VLDL Calculation 11.52 mg/dL (5.00-40.00)
[2024-08-12 19:09] LABS: Carbamazepine (Tegretol) 7.7 UG/ML (4.0-12.0)
== END | disposition home or self-care (01) ==
LOC: LABWHC1 07:59
PROVIDERS: ATTEND Psychiatry & Neurology Psychiatry
CPT/HCPCS: 36415; 80061; 80156; 82306; 82607; 82947; 83036; 83735; 84439; 84443; 85025

== ENCOUNTER → 2025-02-10 | Outpatient (CLI) | payer OTHER ==
[2025-02-10 11:10] LABS: ALT 19 U/L (10-49); AST 23 U/L (14-35); Albumin 4.1 g/dL (3.8-4.9); Albumin/Globulin Ratio 1.32 Ratio (1.60-3.17); Alkaline Phosphatase 74 U/L (41-126); BUN/Creat Ratio 14.91 Ratio (12.00-20.00); Blood Urea Nitrogen 16.4 mg/dL (9.0-27.0); Calcium 8.8 mg/dL (8.7-10.3); Carbamazepine (Tegretol) 8.4 UG/ML (4.0-12.0); Carbon Dioxide 25.1 mmol/L (21.6-31.8); Chloride 107 mmol/L (96-109); Chol/HDL Ratio 2.98 Ratio; Globulin 3.1 g/dL (1.6-3.3); Glucose 96 mg/dL (70-110); LDL Cholesterol,Calculated 103.2 mg/dL (0.0-131.0); Potassium 4.5 mmol/L (3.5-5.5); Sodium 141 mmol/L (135-145); T4, Free (Free Thyroxine) 1.02 ng/dL (0.80-1.80); Total Bilirubin <0.2 mg/dL (0.3-1.2); Total Protein 7.2 g/dL (6.2-8.2)
[2025-02-10 15:29] LABS: Basophils # (A) 0.06 X 10*3/uL (0.00-0.10); Basophils % (A) 1.1 %; Eosinophils # (A) 0.17 X 10*3/uL (0.04-0.35); Eosinophils % (A) 3.1 %; HCT 41.3 % (39.6-50.0); HGB 13.3 g/dL (13.0-17.0); MCH 29.8 pg (27.0-32.0); MCHC 32.2 g/dL (32.0-37.0); MCV 92.6 FL (80.0-97.0); Mean Platelet Volume 8.2 FL (9.5-12.2); Monocytes # (A) 0.48 X 10*3/uL (0.20-1.00); Monocytes % (A) 8.7 %; NRBC Per 100 WBC 0 X 10*3/uL (0.00-0.01); Neutrophils # (A) 2.57 X 10*3/uL (1.80-7.70); Neutrophils % (A) 46.7 %; Platelet Count 273 X 10*3/uL (140-440); RBC 4.46 X 10*6/uL (4.40-5.60); RDW 12.7 % (11.5-14.5)
== END | disposition home or self-care (01) ==
LOC: LABWHC1 08:04
PROVIDERS: ATTEND Psychiatry & Neurology Psychiatry
DX: E03.9 Hypothyroidism, unspecified (principal); E87.1 Hypo-osmolality and hyponatremia; Z79.899 Other long term (current) drug therapy
CPT/HCPCS: 36415; 80053; 80061; 80156; 82306; 84439; 84443; 85025